=== PATIENT | female | born 1970 | race Two or more races ===

== ENCOUNTER 2017-06-04 12:50 | Emergency (ER) | payer SELFPAY ==
[2017-06-04] MEDS: IV NORMAL SALINE 1000ML BAG 1,000 ML IV (13:53)
[2017-06-04] MEDS: ONDANSETRON PF 4 MG/2 ML VIAL. IV (13:54)
[2017-06-04] MEDS: HYDROmorphone 2 MG/ML VIAL IV ×2 (13:55→14:15)
[2017-06-04 14:00] LABS: ADD MAN DIFF? NO
[2017-06-04 14:12] LABS: ANION GAP 6 (6-14); BASO % 0 % (0-3); BLOOD UREA NITROGEN 15 mg/dL (7-20); BUN/CREATININE RATIO 25 (6-20); CALCIUM 8.3 mg/dL (8.5-10.1); CARBON DIOXIDE 29 mmol/L (21-32); CHLORIDE 106 mmol/L (98-107); CREATININE 0.6 mg/dL (0.6-1.0); EOS # 0.3 x10^3/uL (0.0-0.7); EOS % 4 % (0-3); GFR 107.6; GLUCOSE 75 mg/dL (70-99); HEMATOCRIT 40.3 % (36.0-47.0); HEMOGLOBIN 13.7 g/dL (12.0-15.5); LYMPH # 1.3 x10^3/uL (1.0-4.8); LYMPH % 20 % (24-48); MEAN CORPUSCULAR HEMOGLOBIN 31 pg (25-35); MEAN CORPUSCULAR HGB CONC 34 g/dL (31-37); MEAN CORPUSCULAR VOLUME 92 fL (79-100); MONO # 0.5 x10^3/uL (0.0-1.1); MONO % 7 % (0-9); NEUT # 4.5 x10^3uL (1.8-7.7); NEUT % 69 % (31-73); PLATELET COUNT 186 x10^3/uL (140-400); POTASSIUM 3.6 mmol/L (3.5-5.1); RED BLOOD COUNT 4.39 x10^6/uL (3.50-5.40); RED CELL DISTRIBUTION WIDTH 12.5 % (11.5-14.5); SODIUM 141 mmol/L (136-145); WHITE BLOOD COUNT 6.5 x10^3/uL (4.0-11.0)
[2017-06-04 14:13] LABS: BILIRUBIN,URINE NEGATIVE (NEG); CLARITY,URINE CLEAR; COLOR,URINE YELLOW; GLUCOSE,URINE NEGATIVE (NEG); NITRITE,URINE NEGATIVE (NEG); PH,URINE 7.5; PROTEIN,URINE NEGATIVE (NEG-TRACE); UROBILINOGEN,URINE 0.2 mg/dL (0.2 mg/dL)
[2017-06-04 14:17] LABS: ALBUMIN 3.6 g/dL (3.4-5.0); ALBUMIN/GLOBULIN RATIO 1.1 (1.0-1.7); ALK PHOS 75 U/L (46-116); ALT (SGPT) 24 U/L (14-59); AST (SGOT) 22 U/L (15-37); LIPASE 142 U/L (73-393); TOTAL BILIRUBIN 0.5 mg/dL (0.2-1.0)
[2017-06-04 14:23] LABS: BACTERIA,URINE FEW /HPF (0-FEW); RBC,URINE 0 /HPF (0-2); SQUAMOUS EPITHELIAL CELL,UR MOD /LPF; WBC,URINE 0 /HPF (0-4)
[2017-06-04] MEDS ORDERED: CONTRAST GIVEN MC (14:45)
[2017-06-04] MEDS: IOHEXOL 300 MG/ML 100ML VIAL. IV (14:52)
== END 2017-06-04 16:29 | disposition home or self-care (01) ==
LOC: ER 12:50
DX: R10.11 Right upper quadrant pain (principal); M54.5 Low back pain; R11.2 Nausea with vomiting, unspecified; R30.0 Dysuria; J45.909 Unspecified asthma, uncomplicated; Z90.710 Acquired absence of both cervix and uterus
CPT/HCPCS: 36415; 74177; 76705; 80053; 81001; 83690; 85025; 96361; 96374; 96375; 99285-25; J1170; J2405; J7030; Q9967